=== PATIENT | male | born 1980 | race Caucasian/White ===

== ENCOUNTER 2016-10-15 16:24 | Emergency (ER) | payer OTHER, BC ==
[2016-10-15] MEDS ORDERED: ONDANSETRON 4 MG TAB.RAPDIS PO ONE (16:38)
[2016-10-15] MEDS ORDERED: OXYCODONE-ACETAMINOPHEN 5-325 MG TABLET PO ONE (16:38)
--- NOTE | 2016-10-15 16:38 | ER Document Report ---
ED Medical Screen (RME) - General Stated Complaint: FLANK PAIN Notes: patient is a 36 year old male with a history of kidney stones but never had symptoms. states it was a coincidental finding on CT when he was trying to donate a kidney States he had sudden onset of pain left flank, sharp stabbing pain with occassional radiation to his groin Denies any urinary symptoms or discharge. I have greeted and performed a rapid initial assessment of this patient. A comprehensive ED assessment and evaluation of the patient, analysis of test results and completion of the medical decision making process will be conducted by additional ED providers.
[2016-10-15 18:38] LABS: ABSOLUTE EOSINOPHILS # (AUTO) 0.1 10^3/uL (0.0-0.6); ABSOLUTE LYMPHOCYTES (AUTO) 1.7 10^3/uL (0.5-4.7); ABSOLUTE MONOCYTES (AUTO) 0.8 10^3/uL (0.1-1.4); ABSOLUTE NEUT (AUTO) 12.9 10^3/uL (1.7-8.2); BASOPHILS % (AUTO) 0.2 % (0-2); EOSINOPHILS % (AUTO) 0.5 % (0-6); HEMOGLOBIN 15.5 g/dL (13.5-17.0); HGB HCT DIFFERENCE 0.5; LYMPHOCYTES % (AUTO) 11.1 % (13-45); MEAN CORPUSCULAR HEMOGLOBIN 30.8 pg (27.0-33.4); MEAN CORPUSCULAR HGB CONC 33.8 g/dL (32.0-36.0); MEAN CORPUSCULAR VOLUME 91 fl (80-97); MONOCYTES % (AUTO) 5.1 % (3-13); RED BLOOD COUNT 5.05 10^6/uL (4.35-5.55); SEGMENTED NEUTROPHILS % (AUTO) 83.1 % (42-78); WHITE BLOOD COUNT 15.5 10^3/uL (4.0-10.5)
[2016-10-15 18:46] LABS: APPEARANCE,URINE CLEAR; BILIRUBIN,URINE NEGATIVE (NEGATIVE); GLUCOSE, URINE NEGATIVE (NEGATIVE); KETONES,URINE NEGATIVE (NEGATIVE); LEUKOCYTE ESTERASE,URINE NEGATIVE (NEGATIVE); NITRITE,URINE NEGATIVE (NEGATIVE); PROTEIN,URINE NEGATIVE (NEGATIVE); URINE SPECIFIC GRAVITY 1.006; UROBILINOGEN,URINE NEGATIVE mg/dL (<2.0)
[2016-10-15 19:10] LABS: ALANINE AMINOTRANSFERASE 86 U/L (21-72); ALBUMIN 4.6 g/dL (3.5-5.0); ALKALINE PHOSPHATASE 79 U/L (38-126); ANION GAP 13 (5-19); ASPARTATE AMINO TRANSFERASE 40 U/L (17-59); BILIRUBIN,TOTAL 0.7 mg/dL (0.2-1.3); BLOOD UREA NITROGEN 16 mg/dL (7-20); CALCIUM 9.7 mg/dL (8.4-10.2); CARBON DIOXIDE 26 mmol/L (22-30); CHLORIDE 102 mmol/L (98-107); CREATININE RESULT 0.97 mg/dL (0.52-1.25); GLUCOSE 95 mg/dL (75-110); POTASSIUM 4.1 mmol/L (3.6-5.0); SODIUM 141.3 mmol/L (137-145); TOTAL PROTEIN 7.6 g/dL (6.3-8.2)
[2016-10-15] MEDS ORDERED: METRONIDAZOLE 500 MG TABLET PO ONE (21:00)
[2016-10-15] MEDS ORDERED: CIPROFLOXACIN HCL 500 MG TABLET PO ONE (21:00)
[2016-10-15] MEDS ORDERED: ONDANSETRON ODT 4 MG TAB (6 TAB/DSPK) PO PRN (21:22)
[2016-10-15] MEDS ORDERED: HYDROCODONE/ACETAMINOPHEN 5-325 MG 6 TAB/DSPK PO PRN (21:22)
--- NOTE | 2016-10-15 21:25 | ER Document Report ---
ED General - General Chief Complaint: Flank Pain Stated Complaint: FLANK PAIN TRAVEL OUTSIDE OF THE [place] IN LAST 30 DAYS: No - HPI Patient complains to provider of: left flank pain Notes: Patient coming in for evaluation left flank pain. Patient has has a history kidney stones. Patient denies any fevers chills states he did have diarrhea earlier. Denies any nausea vomiting. Denies any urinary symptoms - Related Data Allergies/Adverse Reactions: No Known Allergies Allergy (Unverified 10/15/16 21:06) Past Medical History - Social History Smoking Status: Never Smoker Chew tobacco use (# tins/day): Yes Frequency of alcohol use: None Drug Abuse: None Family History: Reviewed & Not Pertinent Patient has suicidal ideation: No Patient has homicidal ideation: No Renal/ Medical History: Denies: Hx Peritoneal Dialysis Surgical Hx: Negative Review of Systems - Review of Systems Constitutional: No symptoms reported EENT: No symptoms reported Cardiovascular: No symptoms reported Respiratory: No symptoms reported Gastrointestinal: No symptoms reported Genitourinary: Flank pain Male Genitourinary: No symptoms reported Musculoskeletal: No symptoms reported Skin: No symptoms reported Hematologic/Lymphatic: No symptoms reported Neurological/Psychological: No symptoms reported -: Yes All other systems reviewed and negative Physical Exam - Vital signs Vitals: Pulse Resp BP Pulse Ox 70 18 146/89 H 96 10/15/16 21:27 10/15/16 21:27 10/15/16 21:27 10/15/16 21:27 Interpretation: Normal - General General appearance: Appears well, Alert - HEENT Head: Normocephalic, Atraumatic Eyes: Normal Pupils: PERRL - Respiratory Respiratory status: No respiratory distress Chest status: Nontender Breath sounds: Normal Chest palpation: Normal - Cardiovascular Rhythm: Regular Heart sounds: Normal auscultation Murmur: No - Abdominal Inspection: Normal Distension: No distension Bowel sounds: Normal Tenderness: Nontender Organomegaly: No organomegaly - Back Back: Normal, Nontender - Extremities General upper extremity: Normal inspection, Nontender, Normal color, Normal ROM , Normal temperature General lower extremity: Normal inspection, Nontender, Normal color, Normal ROM , Normal temperature, Normal weight bearing. No: Angelita's sign - Neurological Neuro grossly intact: Yes Cognition: Normal Orientation: AAOx4 Eva Coma Scale Eye Opening: Spontaneous Eva Coma Scale Verbal: Oriented [place] Coma Scale Motor: Obeys Commands [place] Coma Scale Total: 15 Speech: Normal Motor strength normal: LUE, RUE, LLE, RLE Sensory: Normal - Psychological Associated symptoms: Normal affect, Normal mood - Skin Skin Temperature: Warm Skin Moisture: Dry Skin Color: Normal Course - Re-evaluation Re-evalutation: 10/15/16 22:51 Patient coming in for complaint of left leg pain. Patient's CT scan shows stones within the kidneys but no stones within the ureter. Patient does have inflammatory changes at the splenic flexure of the colon consistent with diverticulitis. Patient will be treated with Cipro Flagyl. Patient also be given nausea medication pain medication. Patient states an understanding of his diagnosis and instructions on home. Discharged follow-up with primary care physician. - Vital Signs Vital signs: Temp Pulse Resp BP Pulse Ox 70 18 146/89 H 96 10/15/16 21:27 10/15/16 21:27 10/15/16 21:27 10/15/16 21:27 - Laboratory Result Diagrams: 10/15/16 18:10 10/15/16 18:10 Laboratory results interpreted by me: 10/15/16 10/15/16 10/15/16 18:10 18:10 18:10 WBC 15.5 H Seg Neutrophils % 83.1 H Lymphocytes % 11.1 L Absolute Neutrophils 12.9 H ALT 86 H Urine Blood MODERATE H Discharge - Discharge Clinical Impression: Diverticulitis Qualifiers: Diverticulitis site: large intestine Diverticulitis bleeding: without bleeding Diverticulitis complication: without perforation or abscess Qualified Code(s): K57.32 - Diverticulitis of large intestine without perforation or abscess without bleeding Condition: Good Disposition: HOME, SELF-CARE Instructions: Ciprofloxacin ([facility]), Diverticulitis ([facility]), Oral Narcotic Medication ([facility]), Low Residue Diet ([facility]), Metronidazole ([facility]) Additional Instructions: Follow-up your primary care physician for further evaluation of her diverticulitis. Return to the ER symptoms worsen. Take medications as prescribed. Prescriptions: Ondansetron [Zofran Odt 4 mg Tablet] 4 mg PO Q4HP PRN #30 tab.rapdis PRN Reason: Ciprofloxacin HCl [Cipro 500 mg Tablet] 500 mg PO BID #14 tablet Hydrocodone Bit/Acetaminophen [Hydrocodon-Acetaminophen 5-325] 1 each PO Q6 #30 tablet Metronidazole [Flagyl 500 mg Tablet] 500 mg PO TID #21 tablet Forms: Return to Work
[2016-10-15 21:30] VITALS: BP 146/89
== END 2016-10-15 21:43 | disposition home or self-care (01) ==
LOC: ER 16:24
DX: K57.32 Diverticulitis of large intestine without perforation or abscess without bleeding (principal); R10.9 Unspecified abdominal pain
CPT/HCPCS: 99284; 36415; 85025; 80053; 81001; 76380; S0119

== ENCOUNTER 2016-11-15 08:41 | Day surgery (SDC) | payer BC, OTHER ==
[~2016-11-15 08:41] MED LIST: PROPOFOL INJ 200 MG/20 ML VIAL IV ONE
[2016-11-15 10:23] VITALS: BP 112/60
--- NOTE | 2016-11-15 12:36 | Operative Report ---
Operative Report DATE OF SURGERY: 11/15/16 Operative Report: The risks, benefits and alternatives of the procedure including risks of bleeding, perforation requiring surgery I explained to the patient detail informed consents obtained. Patient is taken back to the endoscopy suite and placed in a left, lateral decubital position. Rectal examination was done which did not reveal any masses, tears or fissures. Timeout is called. Propofol medications administered. An Olympus was scope is inserted into the patient's rectum. The scope was then gradually advanced all the way to the cecum. The cecum was identified by the usual anatomical landmarks of the ileocecal valve as well as the appendiceal office. Photodocumentation was obtained. Prep is good. The scope was then sequentially pulled back via the various segments of the colon including the ascending colon, hepatic flexure, transverse colon, splenic flexure, descending colon and finally into the rectosigmoid colon. Retroflexion maneuvers performed. PREOPERATIVE DIAGNOSIS: Abdominal pain, change of bowel habits POSTOPERATIVE DIAGNOSIS: Mild left-sided inflammation. Diverticulosis left fecal is right, however no evidence of diverticulitis. Internal hemorrhoids OPERATION: Colonoscopy with biopsy SURGEON: REECE BOSCH ANESTHESIA: LMAC TISSUE REMOVED OR ALTERED: Colon specimens obtained. This on the left side of the colon COMPLICATIONS: None. ESTIMATED BLOOD LOSS: none. INTRAOPERATIVE FINDINGS: As noted above no polyps, AVMs noted PROCEDURE: Patient tolerated the procedure well. No immediate postprocedure complications are noted. Patient is discharged in good condition. Discharge date 11/15/2016. Discharge diet: Regular. Discharge activity: Regular. Patient does have a 2-3 week follow-up to discuss findings. Patient is instructed to call the office or proceed to the emergency room should there be any further problems or questions. We'll await on biopsies.
== END 2016-11-15 10:22 | disposition home or self-care (01) ==
LOC: END 08:41
PROVIDERS: ATTEND Internal Medicine Gastroenterology
PROC: 0DBG8ZX Excision of Left Large Intestine, Via Natural or Artificial Opening Endoscopic, Diagnostic (ICD-10-PCS; principal; 2016-11-15 10:00)
DX: K52.9 Noninfective gastroenteritis and colitis, unspecified (principal); F17.210 Nicotine dependence, cigarettes, uncomplicated; K57.30 Diverticulosis of large intestine without perforation or abscess without bleeding; K64.8 Other hemorrhoids; R03.0 Elevated blood-pressure reading, without diagnosis of hypertension; E66.9 Obesity, unspecified; Z68.33 Body mass index [BMI] 33.0-33.9, adult
CPT/HCPCS: 45380; 88305 ×2; J2704; 810

== ENCOUNTER → 2017-04-13 | Outpatient (CLI) | payer BC ==
[2017-04-13 17:35] LABS: HEMATOCRIT 45.1 % (37.9-51.0); HGB HCT DIFFERENCE 2.9; MEAN CORPUSCULAR HEMOGLOBIN 32.2 pg (27.0-33.4); MEAN CORPUSCULAR HGB CONC 35.4 g/dL (32.0-36.0); MEAN CORPUSCULAR VOLUME 91 fl (80-97); RED BLOOD COUNT 4.97 10^6/uL (4.35-5.55); RED CELL DISTRIBUTION WIDTH 13.1 % (11.5-14.0)
[2017-04-13 17:38] LABS: APPEARANCE,URINE CLEAR; BILIRUBIN,URINE NEGATIVE (NEGATIVE); GLUCOSE, URINE NEGATIVE (NEGATIVE); KETONES,URINE NEGATIVE (NEGATIVE); LEUKOCYTE ESTERASE,URINE NEGATIVE (NEGATIVE); NITRITE,URINE NEGATIVE (NEGATIVE); PROTEIN,URINE NEGATIVE (NEGATIVE); URINE SPECIFIC GRAVITY 1.016; UROBILINOGEN,URINE NEGATIVE mg/dL (<2.0)
[2017-04-13 17:50] LABS: ALANINE AMINOTRANSFERASE 81 U/L (21-72); ALBUMIN 4.5 g/dL (3.5-5.0); ALKALINE PHOSPHATASE 66 U/L (38-126); AMYLASE 55 U/L (30-110); ANION GAP 15 (5-19); ASPARTATE AMINO TRANSFERASE 39 U/L (17-59); BILIRUBIN,DIRECT 0.3 mg/dL (0.0-0.4); BILIRUBIN,TOTAL 0.7 mg/dL (0.2-1.3); BLOOD UREA NITROGEN 12 mg/dL (7-20); CALCIUM 9.6 mg/dL (8.4-10.2); CARBON DIOXIDE 25 mmol/L (22-30); CHLORIDE 101 mmol/L (98-107); CREATININE RESULT 0.91 mg/dL (0.52-1.25); GLUCOSE 90 mg/dL (75-110); LIPASE 101.1 U/L (23-300); POTASSIUM 4.2 mmol/L (3.6-5.0); SODIUM 140.9 mmol/L (137-145); TOTAL PROTEIN 7.6 g/dL (6.3-8.2)
== END ==
LOC: LAB 17:12
PROVIDERS: ATTEND Physician Assistant
DX: R10.13 Epigastric pain (principal)
CPT/HCPCS: 36415; 80053; 81001; 82150; 83690; 85027

== ENCOUNTER → 2018-09-01 | Outpatient (CLI) | payer BC ==
[2018-09-01 07:51] LABS: BLOOD UREA NITROGEN 13 mg/dL (7-20); CALCIUM 9.2 mg/dL (8.4-10.2); GLUCOSE 103 mg/dL (75-110)
[2018-09-01 07:52] LABS: ANION GAP 9 (5-19); CARBON DIOXIDE 27 mmol/L (22-30); CHLORIDE 106 mmol/L (98-107); POTASSIUM 4.5 mmol/L (3.6-5.0); SODIUM 141.9 mmol/L (137-145)
== END ==
LOC: LAB 07:07
PROVIDERS: ATTEND Physician Assistant
DX: E87.5 Hyperkalemia (principal)
CPT/HCPCS: 36415; 80048